=== PATIENT | male | born 1980 | race African-American/Black ===

== ENCOUNTER 2016-06-25 08:56 | Emergency (ER) | payer MEDICAID ==
[2016-06-25 09:13] VITALS: BP 166/108
--- NOTE | 2016-06-25 09:44 | ER Document Report ---
ED General - General Mode of Arrival: Ambulatory Information source: Patient TRAVEL OUTSIDE OF THE [place] IN LAST 30 DAYS: No - HPI Patient complains to provider of: Generalized Malaise Onset: Other - "few weeks" ago Associated symptoms: Other - see above - General Chief Complaint: Sore Throat Stated Complaint: SORE THROAT Notes: 35 year old male with history of hypertension presents to the ED complaining of generalized malaise for the past "few weeks". Patient additionally reports of a sore throat that started today and is explaining of difficulty talking secondary to the sore throat. Patient states that he had a mucus plug stuck in his throat that prevented him from breathing. Patient "screamed" for 30 seconds , cleared the plug, and was able to breath. Patient additionally reports nausea and vomiting. Patient reports that he is out of his hypertensive medication and [facility]FALGUNI CORONA) - Related Data Allergies/Adverse Reactions: No Known Allergies Allergy (Unverified 06/25/16 09:14) Past Medical History - General Information source: Patient - Social History Smoking Status: Never Smoker Chew tobacco use (# tins/day): No Frequency of alcohol use: None Drug Abuse: None Family History: Reviewed & Not Pertinent Patient has suicidal ideation: No Patient has homicidal ideation: No - Past Medical History Cardiac Medical History: Reports: Hx Hypercholesterolemia, Hx Hypertension Renal/ Medical History: Denies: Hx Peritoneal Dialysis - Immunizations Immunizations up to date: Yes Hx Diphtheria, Pertussis, Tetanus Vaccination: Yes Review of Systems - Review of Systems Constitutional: See HPI, Malaise EENT: See HPI, Throat pain Cardiovascular: No symptoms reported Respiratory: No symptoms reported Gastrointestinal: See HPI, Nausea, Vomiting Genitourinary: No symptoms reported Male Genitourinary: No symptoms reported Musculoskeletal: No symptoms reported Skin: No symptoms reported Hematologic/Lymphatic: No symptoms reported Neurological/Psychological: No symptoms reported -: Yes All other systems reviewed and negative Physical Exam - General General appearance: Alert In distress: None - HEENT Head: Normocephalic, Atraumatic Eyes: Normal Extraocular movements intact: Yes Pupils: PERRL Pharynx: Erythema, Other - No abscess or deviation Neck: Normal - Respiratory Respiratory status: No respiratory distress Breath sounds: Normal - Cardiovascular Rhythm: Regular Heart sounds: Normal auscultation - Abdominal Inspection: Normal Distension: No distension Tenderness: Nontender - Back Back: Normal, Nontender - Extremities General upper extremity: Normal inspection, Normal ROM General lower extremity: Normal inspection, Normal ROM - Neurological Neuro grossly intact: Yes Cognition: Normal Orientation: AAOx4 [place] Coma Scale Eye Opening: Spontaneous [place] Coma Scale Verbal: Oriented [place] Coma Scale Motor: Obeys Commands [place] Coma Scale Total: 15 Speech: Normal - Psychological Associated symptoms: Normal affect, Normal mood - Skin Skin Temperature: Warm Skin Moisture: Dry Skin Color: Normal Course - Re-evaluation Re-evalutation: 06/25/16 09:46 I personally performed the services described in the documentation, reviewed and edited the documentation which was dictated to my scribe in my presence, and it accurately records my words and actions. Patient presents emergency Department 1-2 day history of sore throat mucous plug. Says his throat was killing him hard to swallow no fevers chills. Says he had a little bit of mucus that got stuck any was having some trouble breathing but that's resolved. No chest pain cough shortness breath vomiting or diarrhea. He is well-appearing nontoxic in no acute distress with no significant medical history other than high blood pressure for which she is not called to get refill on his medication. When and give him a shot of Bicillin [place]. He is to call to make an appointment in the next 2-3 days with his primary care physician to refill his blood pressure medication and going over all the risks and dangers of elevated blood pressure untreated. Discussed reasons for ED return sooner (SUSAN HIGH) - Vital Signs Vital signs: Temp Pulse Resp BP Pulse Ox 98.8 F 90 18 166/108 H 96 06/25/16 09:12 06/25/16 09:12 06/25/16 09:12 06/25/16 09:12 06/25/16 09:12 Discharge - Discharge Clinical Impression: Pharyngitis Condition: Stable Disposition: HOME, SELF-CARE Additional Instructions: Sore Throat Sore throats may be caused by viruses, bacteria, or fungi. Most are due to a virus, and must get better on their own. Bacterial sore throats, particularly those due to "strep," need treatment with antibiotics. If an antibiotic is prescribed, be sure to take the medication for a full 10 days. Failure to take the antibiotic can result in complications such as rheumatic fever. Sometimes, an injection of antibiotics is given instead of pills or liquid. This single "shot" is equal in effectiveness to the oral medication. To relieve symptoms, take acetaminophen for pain. Sip clear liquids frequently, or eat popsicles or ice chips. Anesthetic sprays or lozenges may help. Make sure the air in the room is not too dry. Avoid using decongestants or antihistamines. Call the doctor if there is no improvement in two days, or if you have difficulty breathing, increasing throat pain, high fever, rash, or frequent vomiting. Follow-up with your primary care physician in 3-4 days return for increasing worsening or new symptoms Forms: Elevated Blood Pressure Scribe Documentation - Scribe Written by Danie:: Danie Phoenix, 06/25/2016 1248 acting as scribe for :: [place]
[2016-06-25] MEDS ORDERED: PENICILLIN G BENZATHINE 1.2 MILLION UNIT/2 ML DISP.SYRIN IM ONE (09:46)
== END 2016-06-25 10:10 | disposition home or self-care (01) ==
LOC: ER 08:56
DX: J02.9 Acute pharyngitis, unspecified (principal); R53.81 Other malaise; R11.2 Nausea with vomiting, unspecified; I10 Essential (primary) hypertension
CPT/HCPCS: 99282; 96372; J0561

== ENCOUNTER 2016-08-18 20:08 | Emergency (ER) | payer MEDICAID ==
--- NOTE | 2016-08-18 23:40 | ER Document Report ---
ED ENT - General Chief Complaint: Sore Throat Stated Complaint: THROAT PAIN Time Seen by Provider: 08/18/16 22:42 Mode of Arrival: Ambulatory Information source: Patient Notes: 36-year-old male presents to ED for feeling like this something in his throat. Last 3 weeks to 2 months. States he is able to eat and drink without difficulty but he constantly feels like there is something in the back of his throat. States the last couple days he's had some postnasal drip this is not what he is concerned about. Patient has a history of elevated blood pressure but has not taken his blood pressure medicine today. TRAVEL OUTSIDE OF THE [place] IN LAST 30 DAYS: No - HPI Patient complains to provider of: Other - Like something in his throat when he swallows Onset: Other - 3 weeks to 2 months Onset/Duration: Intermittent Severity: None Pain Level: Denies Location of pain: Throat Associated symptoms: Other - Feels like he has something in the back of his throat Similar symptoms previously: Yes Recently seen / treated by doctor: No - Related Data Allergies/Adverse Reactions: No Known Allergies Allergy (Unverified 06/25/16 09:14) Past Medical History - General Information source: Patient - Social History Smoking Status: Never Smoker Cigarette use (# per day): No Chew tobacco use (# tins/day): No Smoking Education Provided: No Frequency of alcohol use: None Drug Abuse: None Occupation: sweeper Lives with: Family Family History: Other - Anxiety. denies: Arthritis, CAD, COPD, CVA, DM, Hyperlipidemia, Hypertension, Malignancy, Thyroid Disfunction Patient has suicidal ideation: No Patient has homicidal ideation: No - Past Medical History Cardiac Medical History: Reports: Hx Hypercholesterolemia, Hx Hypertension Pulmonary Medical History: Reports: None EENT Medical History: Reports: None Neurological Medical History: Reports: None Endocrine Medical History: Reports: None Renal/ Medical History: Reports: None Malignancy Medical History: Reports None GI Medical History: Reports: None Musculoskeltal Medical History: Reports None Skin Medical History: Reports None Psychiatric Medical History: Reports: None Traumatic Medical History: Reports: None Infectious Medical History: Reports: None Surgical Hx: Negative Past Surgical History: Reports: None - Immunizations Immunizations up to date: Yes Hx Diphtheria, Pertussis, Tetanus Vaccination: Yes Review of Systems - Review of Systems Constitutional: No symptoms reported EENT: Other - Feel something in the back of his throat when he swallows, states sometimes is so bad it makes him gag Cardiovascular: No symptoms reported Respiratory: No symptoms reported Gastrointestinal: No symptoms reported Genitourinary: No symptoms reported Male Genitourinary: No symptoms reported Musculoskeletal: No symptoms reported Skin: No symptoms reported Hematologic/Lymphatic: No symptoms reported Neurological/Psychological: No symptoms reported -: Yes All other systems reviewed and negative Physical Exam - Vital signs Vitals: Temp Pulse Resp BP Pulse Ox 97.9 F 72 16 151/105 H 97 08/18/16 20:14 08/18/16 20:14 08/18/16 20:14 08/18/16 20:14 08/18/16 20:14 Interpretation: Hypertensive - General General appearance: Appears well, Alert - HEENT Head: Normocephalic, Atraumatic Eyes: Normal Pupils: PERRL - Respiratory Respiratory status: No respiratory distress Chest status: Nontender Breath sounds: Normal Chest palpation: Normal - Cardiovascular Rhythm: Regular Heart sounds: Normal auscultation Murmur: No - Abdominal Inspection: Normal Distension: No distension Bowel sounds: Normal Tenderness: Nontender Organomegaly: No organomegaly - Back Back: Normal, Nontender - Extremities General upper extremity: Normal inspection, Nontender, Normal color, Normal ROM , Normal temperature General lower extremity: Normal inspection, Nontender, Normal color, Normal ROM , Normal temperature, Normal weight bearing. No: Rafaela's sign - Neurological Neuro grossly intact: Yes Cognition: Normal Orientation: AAOx4 [place] Coma Scale Eye Opening: Spontaneous [place] Coma Scale Verbal: Oriented [place] Coma Scale Motor: Obeys Commands [place] Coma Scale Total: 15 Speech: Normal Motor strength normal: LUE, RUE, LLE, RLE Sensory: Normal - Psychological Associated symptoms: Normal affect, Normal mood - Skin Skin Temperature: Warm Skin Moisture: Dry Skin Color: Normal Course - Vital Signs Vital signs: Temp Pulse Resp BP Pulse Ox 98.2 F 72 16 144/102 H 96 08/19/16 01:01 08/19/16 01:01 08/18/16 20:14 08/19/16 01:01 08/19/16 01:01 - Laboratory Laboratory results interpreted by me: 08/18/16 23:40 TSH 0.44 L Discharge - Discharge Clinical Impression: Throat discomfort Condition: Stable Disposition: HOME, SELF-CARE Additional Instructions: SORE THROAT: Sore throats may be caused by viruses, bacteria, or fungi. Most are due to a virus, and must get better on their own. Bacterial sore throats, particularly those due to "strep," need treatment with antibiotics. If an antibiotic is prescribed, be sure to take the medication for a full 10 days. Failure to take the antibiotic can result in complications such as rheumatic fever. Sometimes, an injection of antibiotics is given instead of pills or liquid. This single "shot" is equal in effectiveness to the oral medication. To relieve symptoms, take acetaminophen for pain. Sip clear liquids frequently, or eat popsicles or ice chips. Anesthetic sprays or lozenges may help. Make sure the air in the room is not too dry. Avoid using decongestants or antihistamines. Call the doctor if there is no improvement in two days, or if you have difficulty breathing, increasing throat pain, high fever, rash, or frequent vomiting. We have checked her TSH T3 and T4 and I have given you a written report of these results. Please follow-up with your primary doctor and have them do further studies if he continued to feel there is something in the back of the throat. He also need to follow up with your primary doctor concerning your blood pressure is it was elevated today please take your medications as ordered and have your primary doctor reassess your medications. FOLLOW-UP CARE: If you have been referred to a physician for follow-up care, call the physician s office for an appointment as you were instructed or within the next two days. If you experience worsening or a significant change in your symptoms, notify the physician immediately or return to the Emergency Department at any time for re-evaluation. Forms: Elevated Blood Pressure, Return to Work Referrals: RAHEEM MURPHY MD [Primary Care Provider] - Follow up as needed
[2016-08-19 00:33] LABS: FREE T3 4.46 pg/mL (2.77-5.27)
[2016-08-19 00:46] LABS: THYROID STIMULATING HORMONE 0.44 uIU/mL (0.47-4.68)
[2016-08-19 01:04] VITALS: BP 144/102
== END 2016-08-19 01:05 | disposition home or self-care (01) ==
LOC: ER 20:08
DX: R09.89 Other specified symptoms and signs involving the circulatory and respiratory systems (principal); J02.9 Acute pharyngitis, unspecified; R09.82 Postnasal drip; I10 Essential (primary) hypertension; Z79.899 Other long term (current) drug therapy
CPT/HCPCS: 36415; 84439; 84443; 84481; 99283

== ENCOUNTER 2017-06-25 17:20 | Emergency (ER) | payer SELFPAY ==
[2017-06-25] MEDS ORDERED: ONDANSETRON HCL INJ/PF 4 MG/2 ML SDV IV ONE (17:27)
[2017-06-25] MEDS ORDERED: FENTANYL CITRATE INJ/PF 100 MCG/2 ML AMPUL IV ONE (17:27)
[2017-06-25] MEDS ORDERED: MIDAZOLAM 2 MG/2 ML INJ IV ONE (18:03)
[2017-06-25] MEDS ORDERED: KETAMINE HCL INJ 500 MG/10 ML VIAL IV ONE (18:03)
--- NOTE | 2017-06-25 18:22 | RADIOLOGY REPORT (SQ) ---
EXAM DESCRIPTION: ELBOW RIGHT AP/LAT COMPLETED DATE/TIME: 06/25/2017 5:47 pm REASON FOR STUDY: pain COMPARISON: None. NUMBER OF VIEWS: Two views. TECHNIQUE: AP and lateral radiographic images acquired of the right elbow. LIMITATIONS: None. FINDINGS: MINERALIZATION: Normal. BONES: No acute fracture or dislocation. No worrisome bone lesions. Tiny olecranon enthesophyte. JOINT: No effusion. SOFT TISSUES: No soft tissue swelling. No foreign body. OTHER: No other significant finding. IMPRESSION: NO RADIOGRAPHIC EVIDENCE OF ACUTE INJURY. TECHNICAL DOCUMENTATION: JOB ID: [id number] [employer]- All Rights Reserved Reading location - IP/workstation name: [email or web address]
--- NOTE | 2017-06-25 18:22 | RADIOLOGY REPORT (SQ) ---
EXAM DESCRIPTION: SHOULDER RIGHT 2 OR MORE VIEWS COMPLETED DATE/TIME: 06/25/2017 5:47 pm REASON FOR STUDY: bed 2 +deformity COMPARISON: None. NUMBER OF VIEWS: Two views. TECHNIQUE: AP and Y-view images acquired of the right shoulder. LIMITATIONS: None. FINDINGS: MINERALIZATION: Normal. BONES: No fracture. JOINTS: Anterior dislocation. VISUALIZED LUNGS AND RIBS: No pneumothorax. No rib fracture. SOFT TISSUES: No radiopaque foreign body. OTHER: No other significant finding. IMPRESSION: ANTERIOR DISLOCATION OF THE RIGHT SHOULDER. NO FRACTURE. TECHNICAL DOCUMENTATION: JOB ID: [id number] [employer]- All Rights Reserved Reading location - IP/workstation name: [email or web address]
--- NOTE | 2017-06-25 19:09 | RADIOLOGY REPORT (SQ) ---
EXAM DESCRIPTION: SHOULDER RIGHT 1 VIEW COMPLETED DATE/TIME: 06/25/2017 6:35 pm REASON FOR STUDY: s/p reduction COMPARISON: 06/25/2017 NUMBER OF VIEWS: One view. TECHNIQUE: Single frontal view acquired of the right shoulder. LIMITATIONS: None. FINDINGS: MINERALIZATION: Normal. BONES: No acute fracture or dislocation. No worrisome bone lesions. JOINTS: No dislocation. VISUALIZED LUNGS AND RIBS: No pneumothorax. No rib fracture. SOFT TISSUES: No radiopaque foreign body. OTHER: No other significant finding. IMPRESSION: INTERVAL RELOCATION RIGHT SHOULDER WITHOUT DEFINITE FRACTURE. TECHNICAL DOCUMENTATION: JOB ID: [id number] [employer]- All Rights Reserved Reading location - IP/workstation name: [email or web address]
--- NOTE | 2017-06-25 19:13 | ER Document Report ---
ED General - General Chief Complaint: Shoulder Injury Stated Complaint: SHOULDER PAIN Time Seen by Provider: 06/25/17 17:27 TRAVEL OUTSIDE OF THE [place] IN LAST 30 DAYS: No - HPI Patient complains to provider of: Right shoulder injury Notes: Patient coming in for evaluation of right shoulder injury. Patient [place] [employer] [place] when he try to do a back flip landing on his right arm. Patient has obvious deformity to the right shoulder. Patient otherwise denies any other medical issues denies head trauma loss consciousness. Patient is in obvious pain - Related Data Allergies/Adverse Reactions: No Known Allergies Allergy (Verified 06/25/17 17:33) Past Medical History - Social History Smoking Status: Unknown if Ever Smoked Family History: Other - Anxiety. denies: Arthritis, CAD, COPD, CVA, DM, Hyperlipidemia, Hypertension, Malignancy, Thyroid Disfunction Patient has suicidal ideation: No Patient has homicidal ideation: No - Past Medical History Cardiac Medical History: Reports: Hx Hypercholesterolemia, Hx Hypertension Renal/ Medical History: Denies: Hx Peritoneal Dialysis - Immunizations Immunizations up to date: Yes Hx Diphtheria, Pertussis, Tetanus Vaccination: Yes Review of Systems - Review of Systems Constitutional: No symptoms reported EENT: No symptoms reported Cardiovascular: No symptoms reported Respiratory: No symptoms reported Gastrointestinal: No symptoms reported Genitourinary: No symptoms reported Male Genitourinary: No symptoms reported Musculoskeletal: Other - Right shoulder injury Skin: No symptoms reported Hematologic/Lymphatic: No symptoms reported Neurological/Psychological: No symptoms reported Physical Exam - Vital signs Vitals: Temp Pulse Resp BP Pulse Ox 98.1 F 67 20 148/99 H 95 06/25/17 17:22 06/25/17 17:22 06/25/17 17:22 06/25/17 17:22 06/25/17 17:22 Interpretation: Normal - General General appearance: Appears well, Alert - HEENT Head: Normocephalic, Atraumatic Eyes: Normal Pupils: PERRL - Respiratory Respiratory status: No respiratory distress Chest status: Nontender Breath sounds: Normal Chest palpation: Normal - Cardiovascular Rhythm: Regular Heart sounds: Normal auscultation Murmur: No - Abdominal Inspection: Normal Distension: No distension Bowel sounds: Normal Tenderness: Nontender Organomegaly: No organomegaly - Back Back: Normal, Nontender - Extremities General upper extremity: Tender, Other - Left shoulder unaffected. Right shoulder has obvious deformity consistent with a dislocation. Is also complains of pain at the elbow. Neurovascular intact distally sensation and pulses.. No: Normal inspection General lower extremity: Normal inspection, Nontender, Normal color, Normal ROM , Normal temperature, Normal weight bearing. No: Rafaela's sign - Neurological Neuro grossly intact: Yes Cognition: Normal Orientation: AAOx4 [place] Coma Scale Eye Opening: Spontaneous [place] Coma Scale Verbal: Oriented [place] Coma Scale Motor: Obeys Commands [place] Coma Scale Total: 15 Speech: Normal Motor strength normal: LUE, RUE, LLE, RLE Sensory: Normal - Psychological Associated symptoms: Normal affect, Normal mood - Skin Skin Temperature: Warm Skin Moisture: Dry Skin Color: Normal Course - Re-evaluation Re-evalutation: 06/25/17 19:09 Patient underwent conscious sedation with reduction of the shoulder. Patient will follow up with orthopedics. Will discharge patient home. - Vital Signs Vital signs: Temp Pulse Resp BP Pulse Ox 98.1 F 67 20 148/99 H 95 06/25/17 17:27 06/25/17 17:27 06/25/17 17:27 06/25/17 17:27 06/25/17 17:27 Procedures - Conscious Sedation Conscious sedation Time started: 18:17 Time completed: 18:25 Consent obtained: Yes Indication: Reduction Last meal: 1200 Prior complications: Procedural sedation Normal healthy pt.: P1. - ASA Classification Airway Evaluation: Normal anatomy Mallampati Classification: Class 1 Used during procedure: Suction available, IV access obtained, Pulse ox on pt., strap buckler machine on pt. Medications administered: Versed, Ketamine Reversal agents: None I personally performed/intraservice time: Sedation, Procedure, 30 min or less Complications: No - Immobilization Right Shoulder Immobilizer type: Shoulder immobilizer Performed by: Provider assisted Post-Proc Neuro Vasc Exam: Normal Alignment checked and good: Yes - Joint Reduction/Fracture Care Right Shoulder Time completed: 18:20 Consent obtained: Yes Conscious sedation: Yes Pre-procedure NV exam: Yes Manipulation comment: Traction with external rotation Post-reduction x-ray: Joint reduced Reduction attempts: 1 Complications: No Discharge - Discharge Clinical Impression: Dislocation of right shoulder joint Qualifiers: Encounter type: initial encounter Qualified Code(s): S43.004A - Unspecified dislocation of right shoulder joint, initial encounter Condition: Good Disposition: HOME, SELF-CARE Instructions: Shoulder Dislocation ([facility]), Post Sedation Instructions ([facility]) Additional Instructions: Please continue with the the follow-up with orthopedics. He may follow-up with orthopedic doctor provided. Return to ER if symptoms worsen. I would recommend taking Tylenol and Motrin for pain control. Forms: Return to Work Referrals: LA SANTAMARIA MD [ACTIVE STAFF] - Follow up as needed
[2017-06-25 19:57] VITALS: BP 149/104
== END 2017-06-25 19:58 | disposition home or self-care (01) ==
LOC: ER 17:20
DX: S43.004A Unspecified dislocation of right shoulder joint, initial encounter (principal); W19.XXXA Unspecified fall, initial encounter; Y93.44 Activity, trampolining; Y92.838 Other recreation area as the place of occurrence of the external cause; I10 Essential (primary) hypertension
CPT/HCPCS: 99284; 99152; 96374; 96375; 73070; 73020; 73030; 23650; L3650; J2250; J3010; J3490; J2405